=== PATIENT | female | born 1995 | race Two or more races ===

== ENCOUNTER → 2018-11-01 | Emergency (ER) | payer OTHER ==
[~2018-11-01] VITALS: Ht 180.3 cm; Wt 74.4 kg
[~2018-11-01] MED LIST: ADVAIR IH; ALBUTEROL2.5 MG/3 M; ALBUTEROL2.5 MG/3 M IH; ALLEGRA ALLERG180 MG PO; ALLEGRA60 M1; CLARITIN5 MG; GILTUSS LIQUID237 M1 PO; MUCINEX1200 MG/BO PO; PRELONE15 MG/5 ML; PROVENTIL HFA6.7 GM IH; PROVENTIL3 ML/2.5 M IH; SINGULAIR 10MG10 MG; SINGULAIR 10MG10 MG PO; SINGULAIR10 MG; SINGULAIR10 MG PO; SYMBICORT 16010.2 GM IH; ZITHROMAX500 MG PO; ZYNCOF 20-400120 ML PO
== END | disposition home or self-care (01) ==
LOC: ER 22:55
DX: J45.998 Other asthma (principal)

== ENCOUNTER → 2018-11-01 | Emergency (ER) | payer OTHER ==
[~2018-11-01] VITALS: Ht 180.3 cm; Wt 74.4 kg
== END | disposition home or self-care (01) ==
LOC: ER 03:44
DX: J20.8 Acute bronchitis due to other specified organisms (principal)

== ENCOUNTER 2019-08-01 01:34 | Emergency (ER) | payer OTHER ==
[~2019-08-01] VITALS: Ht 180.3 cm; Wt 58.1 kg
[~2019-08-01 01:34] MED LIST changes: -PROMETH-CODEIN 65 ML PO; -TESSALON PERLE100 M1 PO
[2019-08-01] MEDS ORDERED: PROMETH-CODEIN 65 ML PO (02:13)
[2019-08-01] MEDS ORDERED: TESSALON PERLE100 M1 PO (02:13)
== END 2019-08-01 02:30 | disposition home or self-care (01) ==
LOC: ER 01:34
DX: R05 Cough (principal)

== ENCOUNTER → 2019-08-01 | Emergency (ER) | payer OTHER ==
[~2019-08-01] VITALS: Ht 180.3 cm; Wt 83.5 kg
[~2019-08-01] MED LIST changes: +PROMETH-CODEIN 65 ML PO; +TESSALON PERLE100 M1 PO
== END | disposition left against medical advice (07) ==
LOC: ER 03:36
DX: Z53.20 Procedure and treatment not carried out because of patient's decision for unspecified reasons (principal)

== ENCOUNTER 2021-06-07 16:16 | Emergency (ER) | payer OTHER ==
[~2021-06-07] VITALS: Ht 177.8 cm; Wt 83.5 kg
[~2021-06-07 16:16] MED LIST changes: +PROMETH-CODEIN 65 ML PO; +TESSALON PERLE100 M1 PO
[2021-06-07] MEDS ORDERED: ZYRTEC10 M3 (16:45)
[2021-06-07] MEDS ORDERED: BENZONATATE200 M1 PO (19:00)
[2021-06-07] MEDS ORDERED: FLONASE ALLERG9.9 ML NASAL (19:01)
== END 2021-06-07 19:13 | disposition home or self-care (01) ==
LOC: ER 16:16
DX: B34.9 Viral infection, unspecified (principal); J20.9 Acute bronchitis, unspecified; J11.1 Influenza due to unidentified influenza virus with other respiratory manifestations; Z20.828 Contact with and (suspected) exposure to other viral communicable diseases